=== PATIENT | female | born 1950 | race Caucasian/White ===

== ENCOUNTER 2024-04-30 13:51 | Emergency (ER) | payer OTHER ==
[~2024-04-30] VITALS: Ht 160 cm; Wt 59.9 kg
[2024-04-30 14:08] VITALS: TEMP 96.7
[2024-04-30 14:45] LABS: BASOPHILS % 0.8 % (0.0-1.0); EOSINOPHILS # (AUTO) 0.2 (0.0-0.4); HEMATOCRIT 44.1 % (34.2-44.1); HEMOGLOBIN 13.5 g/dL (12.0-16.0); LYMPHOCYTES # (AUTO) 1.6 (1.0-3.2); LYMPHOCYTES % 31.1 % (18.0-39.1); MEAN CORPUSCULAR HEMOGLOBIN 30.7 pg (28-32); MEAN CORPUSCULAR HGB CONC 30.6 g/dL (31-35); MEAN CORPUSCULAR VOLUME 100.2 fL (81-99); MONOCYTES # (AUTO) 0.5 (0.2-0.8); MONOCYTES % 9.8 % (4.4-11.3); NEUTROPHILS # (AUTO) 2.8 (2.1-6.9); NEUTROPHILS % 54.1 % (38.7-80.0); PLATELET COUNT 229 x10e3/uL (140-360); WHITE BLOOD COUNT 5.21 x10e3/uL (4.8-10.8)
[2024-04-30 14:55] LABS: INR 1.07; PROTHROMBIN TIME 14.4 seconds (11.9-14.5)
[2024-04-30 14:56] LABS: PARTIAL THROMBOPLASTIN TIME 28.9 seconds (23.8-35.5)
[2024-04-30 15:05] LABS: ALBUMIN 4.6 g/dL (3.5-5.0); ALBUMIN/GLOBULIN RATIO 1.3 (0.8-2.0); ANION GAP 14.6 mmol/L (8-16); BILIRUBIN,TOTAL 0.4 mg/dL (0.2-1.2); CALCIUM 9.6 mg/dL (8.4-10.2); CREATININE, SERUM 0.82 mg/dL (0.57-1.11); MAGNESIUM 2.3 MG/DL (1.3-2.1); POTASSIUM 3.6 mmol/L (3.5-5.1); TOTAL PROTEIN 8.2 g/dL (6.5-8.1)
[2024-04-30 15:11] LABS: TROPONIN I 0.007 ng/mL (0-0.300)
[2024-04-30] MEDS ORDERED: IOPAMIDOL 370 MG/ML 100 ML INFUS..BTL INJ ONE (15:19)
[2024-04-30] MEDS ORDERED: HEPARIN 25,000 UNIT/D5W 250ML 1,000 UNIT in DEXTROSE 5% 250ML 250 ML IV SCH (16:30)
[2024-04-30] MEDS ORDERED: HEPARIN SOD (PORCINE) 5,000 UNIT/ML VIAL IV ONE (16:30)
[2024-04-30] MEDS: HEPARIN SOD (PORCINE) 5,000 UNIT/ML VIAL IV ONE (16:50)
[2024-04-30] MEDS: SODIUM CHLORIDE 0.9% 1000ML 1,000 ML IV STA (16:51)
[2024-04-30] MEDS: HEPARIN 25,000 UNIT/D5W 250ML 250 ML IV SCH (16:51)
[2024-04-30 17:45] VITALS: PULSE 53; RESP 16; O2SAT 100
== END 2024-04-30 18:57 | disposition other institution (70) ==
LOC: ER 14:17
DX: M79.605 Pain in left leg (principal); I82.432 Acute embolism and thrombosis of left popliteal vein; G30.9 Alzheimer's disease, unspecified; F02.80 Dementia in other diseases classified elsewhere, unspecified severity, without behavioral disturbance, psychotic disturbance, mood disturbance, and anxiety; I10 Essential (primary) hypertension; E78.5 Hyperlipidemia, unspecified; E03.9 Hypothyroidism, unspecified; F32.A Depression, unspecified
CPT/HCPCS: 36415; 71260; 80053; 82550; 83735; 83880; 84484; 85025; 85610; 85730; 93005; 93306; 99284; J1644; J7030; Q9967